=== PATIENT | male | born 1965 ===

== ENCOUNTER 2018-09-18 14:20 | Inpatient (IN) | payer MEDICAID ==
--- NOTE | 2018-09-18 14:32 | C.PDOC ---
History Of Present Illness 53 y/o male with PMH of opiate and alcohol abuse presents to the ED for detox from alcohol and heroin. Last use of alcohol just [employer], a few beers. Last heroin use 330AM. Pt is prescreened for detox. Denies fever, chills, SI, HI, campo ucinations, seizures, tremors, nausea, vomiting. abdominal pain, chest pain, SOB, palpitations, urinary symptoms, back pain, neck pain, or any other associated complaints. Time Seen by Provider: 09/18/18 14:25 Chief Complaint (Nursing): Substance Abuse Past Medical History Vital Signs: Last Vital Signs Temp 98.3 F 09/18/18 14:26 Pulse 92 H 09/18/18 14:26 Resp 20 09/18/18 14:26 BP 119/79 09/18/18 14:26 Pulse Ox 97 09/18/18 14:26 Family History: States: No Known Family Hx - Social History Hx Alcohol Use: Yes Hx Substance Use: Yes - Immunization History Hx Tetanus Toxoid Vaccination: No Hx Influenza Vaccination: No Hx Pneumococcal Vaccination: No Review Of Systems Except As Marked, All Systems Reviewed And Found Negative. Constitutional: Negative for: Fever, Chills Eyes: Negative for: Vision Change ENT: Negative for: Nose Congestion, Throat Pain Cardiovascular: Negative for: Chest Pain, Palpitations Respiratory: Negative for: Cough, Shortness of Breath Gastrointestinal: Positive for: Abdominal Pain. Negative for: Nausea, Vomiting, Diarrhea, Constipation Genitourinary: Negative for: Dysuria, Frequency Musculoskeletal: Negative for: Neck Pain, Back Pain Skin: Negative for: Rash Neurological: Negative for: Weakness, Numbness, Headache, Dizziness Physical Exam - Physical Exam Appears: Well, No Acute Distress Skin: Normal Color, Warm, Dry Head: Atraumatic, Normacephalic Eye(s): bilateral: Normal Inspection, PERRL, EOMI Nose: Normal Neck: Normal, Normal ROM, Supple, No Other (no meningeal signs) Cardiovascular: Rhythm Regular Respiratory: Normal Breath Sounds Gastrointestinal/Abdominal: Normal Exam, Soft, No Tenderness Back: Normal Inspection, No CVA Tenderness Extremity: Normal ROM, Capillary Refill (<2s) Pulses: Left Radial: Normal, Right Radial: Normal Gait: Steady ED Course And Treatment - Laboratory Results Result Diagrams: 09/18/18 14:47 02/26/19 14:47 O2 Sat by Pulse Oximetry: 97 Medical Decision Making Medical Decision Making: Initial Plan: * Detox bloodwork * UA, UDS * PES Eval 1500 Labwork reviewed, significant for mild leukocytosis. Pt with no complaints and no source of infection. Most likely stress reaction from drug use. Advised pt to alert admitting team of any new/worsening symptoms and admitting team to consult medicine as necessary. Patient medically cleared for psychiatric evaluation. 1624 Advised by CARMENCITA that patient is to be admitted by Dr. Hernandez to detox floor with diagnosis of Opioid Use Disorder, Severe. Patient in NAD with VSS at this time, made aware of change in disposition. Pt offers no complaints. Disposition - Disposition Disposition: HOSPITALIZED Disposition Time: 16:24 Condition: STABLE - Clinical Impression Clinical Impression: Opioid use disorder, severe, dependence, Alcohol use disorder, severe, dependence
[2018-09-18 14:53] LABS: BASO # 0.1 K/uL (0.0-0.2); BASO % 1.2 % (0.0-2.0); EOS # 0.1 K/uL (0.0-0.7); HEMOGLOBIN 16.9 g/dL (12.0-18.0); LYMPH % 26.1 % (20.0-40.0); MEAN CELL VOLUME 102.2 fL (80.0-94.0); MEAN CORPUSCULAR HEMOGLOBIN 34.6 pg (27.0-31.0); MEAN CORPUSCULAR HGB CONC 33.9 g/dL (33.0-37.0); MEAN PLATELET VOLUME 8.5 fL (7.2-11.7); MONO # 0.8 K/uL (0.0-0.8); MONO % 6.7 % (0.0-10.0); NEUT # 7.4 K/uL (1.8-7.0); RBC 4.89 Mil/uL (4.40-5.90); RED CELL DISTRIBUTION WIDTH 13.2 % (11.5-14.5); WHITE BLOOD COUNT 11.4 K/uL (4.8-10.8)
[2018-09-18 15:02] LABS: SQUAMOUS EPITHIAL 1 /hpf (0-5); URINE BILIRUBIN NEGATIVE (NEGATIVE); URINE BLOOD NEGATIVE (NEGATIVE); URINE CLARITY Hazy (Clear); URINE GLUCOSE (UA) NORMAL (Normal); URINE LEUKOCYTE ESTERASE NEG Leu/uL (Negative); URINE PROTEIN NEGATIVE (NEGATIVE)
[2018-09-18 15:03] LABS: URINE COLOR YELLOW (YELLOW)
[2018-09-18 15:18] LABS: ALB/GLOB RATIO 1.2 (1.0-2.1); ALBUMIN 4.7 g/dL (3.5-5.0); ALT/SGPT 17 U/L (21-72); AST/SGOT 34 U/L (17-59); BLOOD UREA NITROGEN 15 mg/dL (9-20); CALCIUM 9.3 mg/dl (8.6-10.4); GFR NON-AFRICAN AMERICAN > 60
[2018-09-18 15:36] LABS: ACETAMINOPHEN < 10.0 ug/mL (10.0-30.0); SALICYLATE < 1.0 mg/dL 1
[2018-09-18 15:56] LABS: BENZODIAZEPINES, UR NEGATIVE (NEGATIVE); PHENCYCLIDINE, UR NEGATIVE (NEGATIVE)
[2018-09-18 16:04] LABS: OPIATES, UR POSITIVE (NEGATIVE)
[2018-09-18 16:12] LABS: BARBITURATES, UR NEGATIVE (NEGATIVE)
--- NOTE | 2018-09-18 16:38 | PCM.BM ---
<ConstanceJuaquin - Last Filed: 09/18/18 16:36> Treatment Plan Problems - Problems identified on initial assessmt knowledge deficit; alcohol use Date Initiated: 09/18/18 Time Initiated: 16:38 Assessment reference: NA Status: Active anxiety related to substance use Date Initiated: 09/18/18 Time Initiated: 16:39 Assessment reference: NA Status: Active denial Date Initiated: 09/18/18 Time Initiated: 16:39 Assessment reference: NA Status: Active defensive coping Date Initiated: 09/18/18 Time Initiated: 16:40 Assessment reference: NA Status: Active Treatment assets and liabiliti Patient Assests: negotiates basic needs, cognitively intact Patient Liabilities: substance abuse - Milieu Protocol Maintain good personal hygiene: daily Encourage regular showers, daily Remind patient to perform daily oral care, daily Assist patient to perform ADL's Conduct patient checks and document Observation sheet: Q15 minutes Maintain personal safety: every shift Educate patient to report safety concerns to staff, every shift Monitor environment for contraband/sharps Medication safety: Monitor for expected outcome, potential side effects: every shift, Assess barriers to learning: every shift, Assess readiness for medication education: every shift <Wes Hernandez - Last Filed: 09/21/18 14:27> - Diagnosis (1) Alcohol use disorder, severe, dependence Status: Acute Interventions: 09/21/18 14:27 * Assess 7x/week regarding severity of withdrawal * Educate regarding risks, benefits, side effects and alternatives of medications * Use Motivational Interviewing for abstinence * Use CBT for relapse prevention * Medication management for withdrawal symptoms * Encourage medication assisted treatment * (2) Opioid use disorder, severe, dependence Status: Acute Interventions: 09/21/18 14:27 * Assess 7x/week regarding severity of withdrawal * Educate regarding risks, benefits, side effects and alternatives of medications * Use Motivational Interviewing for abstinence * Use CBT for relapse prevention * Medication management for withdrawal symptoms * Encourage medication assisted treatment *
[2018-09-18] MEDS: Multiple Vitamins Tab PO SCH (18:01)
[2018-09-19] MEDS ORDERED: Influenza Virus Vaccine 45 mcg/0.5 ml Syr (36 months - 7 yrs) IM ONE (10:00)
[2018-09-19] MEDS: Multiple Vitamins Tab PO SCH (10:32)
--- NOTE | 2018-09-19 13:52 | PCM.PSYCH ---
Initial Psychiatric Evaluation - Initial Psychiatric Evaluation Type of Admission: Voluntary Legal Status: Capacity Chief Complaint (in patient's own words): "I have to stop this" History of Present Illness and Precipitating Events: This is a 54 year old single, homeless, male who is currently unemployed for the last 3 years. He has an ex- and daughter aged 35. The patient was admitted to the detox unit for heroin and alcohol abuse. Patient reports that he began using drugs, drinking, and smoking cigarettes when he his many years ago. Patient states he is currently experiencing withdrawal symptoms of cramps, chills, and nausea. He drinks 12 beers daily for the past 26 years. He confirms sniffing 1 bundle of heroin per day for the past 26 years. Patient denies cocaine, benzodiazepine, marijuana, and methamphetamine use. Patient has a history of inpatient detox three years ago at [facility]. Patient denies history of maintenance therapy. Following detox, he wishes to attend an IOP and consider maintenance and find a retirement. Patient denies homicidal or suicidal ideations, auditory or visual hallucinations, or paranoia. Psych Hx: denies Fam Psych: denies PMHx: denies Meds: denies Allergies: none SurgHx: denies Current Medications: Active Medications Generic Name Dose Route Start Last Admin Trade Name Freq PRN Reason Stop Dose Admin Chlordiazepoxide 25 mg 09/18/18 18:00 09/19/18 12:30 Librium PO 09/23/18 17:59 25 mg Q6H ROMINA Administration Taper Chlordiazepoxide 25 mg 09/18/18 17:40 Librium PO Q4H PRN Alcohol Withdrawal Clonidine HCl 0.1 mg 09/18/18 17:40 09/18/18 18:01 Catapres PO 0.1 mg Q4H PRN Administration Symptoms of alcohol withdrawl Folic Acid 1 mg 09/18/18 17:45 09/19/18 10:33 Folic Acid PO 1 mg DAILY ROMINA Administration Hydroxyzine HCl 50 mg 09/18/18 17:46 09/18/18 18:00 Atarax PO 50 mg Q6H PRN Administration Anxiety Ibuprofen 600 mg 09/18/18 17:46 Motrin Tab PO Q6H PRN Pain, moderate (4-7) Multivitamins 1 tab 09/18/18 18:00 09/19/18 10:32 Hexavitamin PO 1 tab DAILY ROMINA Administration Pneumococcal Polyvalent Vaccine 0.5 ml 09/21/18 10:00 Pneumovax 23 Vaccine IM 09/21/18 10:01 .ONCE ONE Thiamine HCl 100 mg 09/18/18 18:00 09/19/18 10:33 Vitamin B1 Tab PO 100 mg DAILY ROMINA Administration Trazodone HCl 50 mg 09/18/18 17:46 Desyrel PO HS PRN Insomnia Past Psychiatric History - Past Psychiatric History Previous Treatment History: None Pertinent Medical Hx (Current Medical&Sleep Prob, Allergies): Allergies Allergy/AdvReac Type Severity Reaction Status Date / Time No Known Allergies Allergy Verified 09/18/18 14:30 No Known Home Med 09/18/18 Review of Systems - Psychiatric Psychiatric: Abnormal Sleep Pattern, Anhedonia, Anxiety, Difficulty Concentrating. absent: Hallucinations, Homicidal Ideation, Paranoia, Suicidal Ideation Mental Status Examination - Personal Presentation Personal Presentation: Looks older than stated age - Affect Affect: Constricted - Motor Activity Motor Activity: Calm - Reliability in Providing Information Reliability in Providing Information: Good - Speech Speech: Organized - Mood Mood: Anxious - Formal Thought Process Formal Thought Process: No Impairment - Cognitive Functions Orientation: Person, Place, Situation, Time Sensorium: Alert Attention/Concentration: Easily distracted Estimate of Intelligence: Average Judgement: Intact, as evidence by: Insight regarding need for hospitalization Memory: Recent intact, as evidence by: Ability to recall events of the day, Remote intact, as evidenced by: Abilit to recall sig. life events - Risk Risk: Withdrawal, Diminished functioning - Strength & Assets Inventory Strength & Assets Inventory: Cooperative - Limitations Limitations: Living alone DSM 5 DX - DSM 5 DSM 5 Diagnosis: Opioid withdrawal Opioid use d/o- severe Alcohol use d/o - severe Alcohol withdrawal Tobacco use d/o - Recommended/Plan of Treatment Treatment Recommendations and Plan of Treatment: Taper with Librium and methadone Gabapentin for augmentation if necessary Start Folic Acid, Thiamine, and Multivitamins As needed medications Clonidine, Atarax, and Motrin Trazodone for insomnia All risks, benefits and alternatives of the meds discussed, and the pt agreed and understood. Attend groups and activities Supportive therapy and psychoeducation [place] for abstinence CBT for relapse prevention Encourage MAT Refer to outpatient rehab or IOP, and self-help groups; patient prefers placement at [facility] after insurance obtained Teach healthy lifestyle methods, i.e. diet, exercise, meditation 37 minutes Projected ELOS: 4-5 days Prognosis: good - Smoking Cessation Smoking Cessation Initiated: Yes
[2018-09-20] MEDS: Multiple Vitamins Tab PO SCH (09:30)
--- NOTE | 2018-09-20 10:59 | CP.PCM.CON ---
History of Present Illness - History of Present Illness History of Present Illness: Podiatry Consult Note - Dr. Nicolas 53 year old male patient seen and evaluated in detox unit concerning a painful callus on left foot. Patient states he had the callus for a year and causes pain with ambulation. No other lower extremity complaints. Denies n/v/f/d/c/sob/wright/cp. Review of Systems - Review of Systems All systems: reviewed and no additional remarkable complaints except (as per HPI) Past Patient History - Past Medical History & Family History Past Medical History?: No - Past Social History Smoking Status: Heavy Smoker > 10 Cigarettes Daily - MUSCULOSKELETAL/RHEUMATOLOGICAL Hx Falls: No - PSYCHIATRIC Hx Substance Use: Yes - SURGICAL HISTORY Hx Surgeries: No - ANESTHESIA Hx Anesthesia: No Meds Allergies/Adverse Reactions: Allergies Allergy/AdvReac Type Severity Reaction Status Date / Time No Known Allergies Allergy Verified 09/18/18 14:30 - Medications Medications: Current Medications Chlordiazepoxide (Librium) 25 mg PO Q6H ROMINA; Taper Stop: 09/23/18 17:59 Last Admin: 09/20/18 05:03 Dose: 25 mg Chlordiazepoxide (Librium) 25 mg PO Q4H PRN PRN Reason: Alcohol Withdrawal Clonidine HCl (Catapres) 0.1 mg PO Q4H PRN PRN Reason: Symptoms of alcohol withdrawl Last Admin: 09/18/18 18:01 Dose: 0.1 mg Folic Acid (Folic Acid) 1 mg PO DAILY [facility] Last Admin: 09/20/18 09:30 Dose: 1 mg Hydroxyzine HCl (Atarax) 50 mg PO Q6H PRN PRN Reason: Anxiety Last Admin: 09/18/18 18:00 Dose: 50 mg Ibuprofen (Motrin Tab) 600 mg PO Q6H PRN PRN Reason: Pain, moderate (4-7) Methadone HCl (Methadone) 15 mg PO Q24H ROMINA; Taper Stop: 09/24/18 09:59 Last Admin: 09/20/18 09:30 Dose: 15 mg Multivitamins (Hexavitamin) 1 tab PO DAILY ROMINA Last Admin: 09/20/18 09:30 Dose: 1 tab Nicotine (Nicoderm Cq) 1 patch TD DAILY [facility] Last Admin: 09/20/18 09:30 Dose: 1 patch Pneumococcal Polyvalent Vaccine (Pneumovax 23 Vaccine) 0.5 ml IM .ONCE ONE Stop: 09/21/18 10:01 Thiamine HCl (Vitamin B1 Tab) 100 mg PO DAILY ROMINA Last Admin: 09/20/18 09:30 Dose: 100 mg Trazodone HCl (Desyrel) 50 mg PO HS PRN PRN Reason: Insomnia Last Admin: 09/19/18 21:35 Dose: 50 mg Physical Exam - Constitutional Appears: Non-toxic, No Acute Distress - Extremities Exam Extremities exam: Positive for: full ROM, normal capillary refill, tenderness (sub 5th met head left foot), pedal pulses present. Negative for: calf tenderness, joint swelling, pedal edema Additional comments: Hypekeratotic lesion noted sub 5th met head right foot with pain on palpation present - Neurological Exam Neurological exam: Alert, Oriented x3 - Psychiatric Exam Psychiatric exam: Normal Affect, Normal Mood Results - Vital Signs Recent Vital Signs: Last Vital Signs Temp 97.8 F 09/20/18 08:48 Pulse 89 09/20/18 08:48 Resp 18 09/20/18 08:48 BP 113/80 09/20/18 08:48 Pulse Ox 98 09/20/18 08:48 - Labs Result Diagrams: 09/18/18 14:47 09/18/18 14:47 Assessment & Plan - Assessment and Plan (Free Text) Assessment: 53M with hyperkeratosis sub 5th met head right foot Plan: Patient seen and evaluated VSS Hyperkeratotic lesion sharply pared without incident, patient feeling significant relief s/p debridement Lower extremity otherwise stable Podiatry to sign off at this time, please reconsult if new issues arise Further recs as per Dr. Nicolas
[2018-09-21] MEDS ORDERED: Influenza Vaccine 60 mcg/0.5 mL SYR (4YR UP) IM ONE (10:00)
[2018-09-21] MEDS ORDERED: Pneumococcal 23-Valent Vaccine IM ONE (10:00)
[2018-09-21] MEDS: Multiple Vitamins Tab PO SCH (10:01)
--- NOTE | 2018-09-21 14:29 | PCM.PYCHPN ---
Psychiatric Progress Note - Psychiatric Progress Note Patient seen today, length of contact: 16 min Patient Chief Complaint: "I am not well" Problems Identified/Issues Discussed: The pt is seen, chart reviewed, case discussed with staff. The pt is compliant with medications and reports no side-effects. Symptoms are improving but needs more time to stabilize. Pt attends groups and activities. Support given, psycho-education provided. After care discussed. Medication Change: Yes (detox changes daily) Medical Record Reviewed: Yes Mental Status Examination - Cognitive Function Orientation: Person, Place, Situation, Time Memory: Intact Attention: WNL Concentration: Poor Association: WNL Fund of Knowledge: WNL - Mood Mood: Anxious - Affect Affect: Constricted - Speech Speech: Appropriate - Formal Thought Process Formal Thought Process: No Impairment - Suicidal Ideation Suicidal Ideation: No - Homicidal Ideation Homicidal Ideation: No Goal/Treatment Plan - Goal/Treatment Plan Need for Continued Stay: Discharge may exacerbated symptoms, Severe functional impairment Progress Toward Problem(s) and Goals/Treatment Plan: Taper with Librium and methadone Gabapentin for augmentation if necessary Start Folic Acid, Thiamine, and Multivitamins As needed medications Clonidine, Atarax, and Motrin Trazodone for insomnia All risks, benefits and alternatives of the meds discussed, and the pt agreed and understood. Attend groups and activities Supportive therapy and psychoeducation [place] for abstinence CBT for relapse prevention Encourage MAT Refer to outpatient rehab or IOP, and self-help groups; patient prefers placement at [facility] after insurance obtained Teach healthy lifestyle methods, i.e. diet, exercise, meditation
--- NOTE | 2018-09-21 14:29 | PCM.PYCHPN ---
Psychiatric Progress Note - Psychiatric Progress Note Patient seen today, length of contact: 16 min Patient Chief Complaint: "I cannot sleep" Problems Identified/Issues Discussed: The pt is seen, chart reviewed, case discussed with staff. Support and psychoeducation given, CBT and OR used briefly Pt is improving slowly and needs more time, still has ongoing symptoms. No SEs from medications, risks discussed. After care discussed Medication Change: Yes (detox changes daily) Medical Record Reviewed: Yes Mental Status Examination - Cognitive Function Orientation: Person, Place, Situation, Time Memory: Intact Attention: WNL Concentration: Poor Association: WNL Fund of Knowledge: WNL - Mood Mood: Anxious - Affect Affect: Constricted - Speech Speech: Appropriate - Formal Thought Process Formal Thought Process: No Impairment - Suicidal Ideation Suicidal Ideation: No - Homicidal Ideation Homicidal Ideation: No Goal/Treatment Plan - Goal/Treatment Plan Need for Continued Stay: Discharge may exacerbated symptoms, Severe functional impairment Progress Toward Problem(s) and Goals/Treatment Plan: Taper with Librium and methadone Gabapentin for augmentation if necessary Start Folic Acid, Thiamine, and Multivitamins As needed medications Clonidine, Atarax, and Motrin Trazodone for insomnia All risks, benefits and alternatives of the meds discussed, and the pt agreed and understood. Attend groups and activities Supportive therapy and psychoeducation [place] for abstinence CBT for relapse prevention Encourage MAT Refer to outpatient rehab or IOP, and self-help groups; patient prefers placement at [facility] after insurance obtained Teach healthy lifestyle methods, i.e. diet, exercise, meditation Podiatry and PT consulted - help appreciated
[2018-09-21 21:47] VITALS: RESP 18
[2018-09-22] MEDS: Multiple Vitamins Tab PO SCH (11:02)
--- NOTE | 2018-09-22 15:30 | PCM.PYCHPN ---
Psychiatric Progress Note - Psychiatric Progress Note Patient seen today, length of contact: 15 minutes Patient Chief Complaint: I'm feeling much better except I have some abdominal discomfort. Problems Identified/Issues Discussed: Patient seen, chart reviewed, case discussed with the staff. Issues related to illness and treatment were discussed with the patient and staff. Reported compliant with treatment with no adverse effects. Tolerating treatment very well. Patient reported feeling much better accept some abdominal discomfort. We'll start Protonix. Patient agreed. Mood reported as okay. Affect appropriate. Aftercare discussed with the patient. Patient denied any delusions, auditory or visual hallucinations, no suicidal ideations or homicidal ideations at the time of evaluation. Medical Problems: None reported Diagnostic Results: Reviewed DSM 5 Symptoms Update: Improving with treatment. Medication Change: Yes (We'll start Protonix 40 mg daily.) Medical Record Reviewed: Yes Mental Status Examination - Cognitive Function Orientation: Person, Place, Situation, Time Memory: Intact Attention: WNL Concentration: WNL Association: WNL Fund of Knowledge: [facility] Decription of patient's judgement and insights: Fair - Mood Mood: Anxious - Affect Affect: Other (Appropriate) - Speech Speech: Appropriate - Formal Thought Process Formal Thought Process: No Impairment Psychotic Thoughts and Behaviors: None - Suicidal Ideation Suicidal Ideation: No - Homicidal Ideation Homicidal Ideation: No Goal/Treatment Plan - Goal/Treatment Plan Need for Continued Stay: Remain at risks for inpatient hospitalization, Discharge may exacerbated symptoms, Severe functional impairment Progress Toward Problem(s) and Goals/Treatment Plan: Improving with treatment. Patient education. Supportive therapy. CBT for relapse prevention. DC for abstinence. Continue treatment as before. Estimated Date of D/C: 09/23/18 - Smoking Cessation Smoking Cessation Initiated: Yes
[2018-09-22] MEDS: Pantoprazole 40 mg EC Tab PO SCH (15:55)
[2018-09-23 09:37] VITALS: BP 122/78; PULSE 77; TEMP 97.2; O2SAT 99
[2018-09-23] MEDS: Multiple Vitamins Tab PO SCH (09:41)
[2018-09-23] MEDS: Pantoprazole 40 mg EC Tab PO SCH (09:41)
--- NOTE | 2018-09-23 18:35 | PCM.PYCHDC ---
Mental Status Examination - Mental Status Examination Orientation: Person, Place, Situation, Time Memory: Intact Mood: Neutral Affect: Other (Appropriate) Speech: Appropriate Attention: WNL Concentration: WNL Association: WNL Fund of Knowledge: WNL Formal Thought Process: No Impairment Description of patient's judgement and insight: Fair Psychotic Thoughts and Behaviors: None Suicidal Ideation: No Current Homicidal Ideation?: No Discharge Summary - Discharge Note Reason for Hospitalization: Opioid withdrawal Opioid use disorder severe Alcohol withdrawal Alcohol use disorder severe Laboratory Data: Reviewed Consultations:: List each consultation separately and include: 1. Reason for request. 2. Findings. 3. Follow-up Summary of Hospital Course include:: 1. Description of specific treatment plan utilized for patients during their course of treatmen. 2. Summarize the time- course for resolution of acute symptoms and/or regressed behaviors. 3. Describe issues identified and worked on during hospitalization. 4. Describe medication utilized. 5. Describe medical problems identified and treated. 6. Reassessment of suicide risk Summary of Hospital Course: This is a 54 year old single, homeless, male who is currently unemployed for the last 3 years. He has an ex- and daughter aged 35. The patient was admitted to the detox unit for heroin and alcohol abuse. Patient reports that he began using drugs, drinking, and smoking cigarettes when he his many years ago. Patient states he is currently experiencing withdrawal symptoms of cramps, chills, and nausea. He drinks 12 beers daily for the past 26 years. He confirms sniffing 1 bundle of heroin per day for the past 26 years. Patient denies cocaine, benzodiazepine, marijuana, and methamphetamine use. Patient has a history of inpatient detox three years ago at [facility]. Patient denies history of maintenance therapy. Following detox, he wishes to attend an [facility] and consider maintenance and find a intermediate. Patient denies homicidal or suicidal ideations, auditory or visual hallucinations, or paranoia. Psych Hx: denies Fam Psych: denies PMHx: denies Meds: denies Allergies: none SurgHx: denies During his stay in the hospital patient was treated with Librium taper for alcohol withdrawal symptoms and methadone taper for opioid withdrawal symptoms. Patient was also started on other PRN medications. Patient was also attending groups and other activities on the unit. With above treatment patient started feeling better. Today patient was stable and had no withdrawal symptoms and was ready for discharge from the hospital. At the time of evaluation and discharge, patient was awake, alert and oriented x3, had no delusions, no auditory or real hallucinations, no suicidal ideations or homicidal ideations. Patient was discharged in a stable condition. - Final Diagnosis (DSM 5) Condition upon Discharge: STABLE Disposition: HOME/ ROUTINE Prescriptions/Medication Reconciliation: Pantoprazole [Protonix EC Tab] 40 mg PO DAILY #30 ect QUEtiapine [Seroquel] 100 mg PO HS #30 tab traZODone [Desyrel] 50 mg PO HS PRN #30 tab PRN Reason: Insomnia - Smoking Cessation Smoking Cessation Medication prescribed: Yes - Antipsychotic Medications Pt discharged on 2 or more routine antipsychotic medications: No
== END 2018-09-23 11:15 | disposition home or self-care (01) | DRG 772 ==
LOC: C.ER 14:20 → C.7D 16:22
PROVIDERS: ADMIT Psychiatry & Neurology Psychiatry; ATTEND Psychiatry & Neurology Psychiatry
PROC: HZ2ZZZZ Detoxification Services for Substance Abuse Treatment (ICD-10-PCS; principal; 2018-09-18)
PROC: HZ46ZZZ Group Counseling for Substance Abuse Treatment, Psychoeducation (ICD-10-PCS; 2018-09-18)
PROC: HZ80ZZZ Medication Management for Substance Abuse Treatment, Nicotine Replacement (ICD-10-PCS; 2018-09-18)
PROC: HZ59ZZZ Individual Psychotherapy for Substance Abuse Treatment, Supportive (ICD-10-PCS; 2018-09-18)
DX: F11.23 Opioid dependence with withdrawal (principal); F10.239 Alcohol dependence with withdrawal, unspecified; F17.210 Nicotine dependence, cigarettes, uncomplicated; Y90.4 Blood alcohol level of 80-99 mg/100 ml; G47.00 Insomnia, unspecified; L84 Corns and callosities; Z59.0 Homelessness